=== PATIENT | female | born 1975 | race Caucasian/White ===

== ENCOUNTER 2023-12-11 20:06 | Emergency (ER) | payer BC ==
[~2023-12-11] VITALS: Ht 167.6 cm; Wt 91.3 kg
[2023-12-11 20:16] VITALS: TEMP 98.6
[2023-12-11] MEDS: TETanus/Pertussis (Acell)/Diphther VAC/PF (Tdap-Adult) 0.5ml syringe IMVAC ONE (22:00)
[2023-12-11] MEDS: LIDOcaine 1% W/epiNEPHrine 1:100,000 20ml vial SQ ONE (22:01)
[2023-12-11] MEDS ORDERED: AMOX-580 PO (22:46)
[2023-12-11] MEDS ORDERED: HYDR-3965 PO (23:07)
[2023-12-11 23:18] VITALS: BP 108/69; PULSE 65; RESP 18; O2SAT 98
== END 2023-12-11 23:15 | disposition home or self-care (01) ==
LOC: ER 20:10
DX: S61.214A Laceration without foreign body of right ring finger without damage to nail, initial encounter (principal); Z79.2 Long term (current) use of antibiotics; W54.0XXA Bitten by dog, initial encounter; Y93.89 Activity, other specified; Y92.89 Other specified places as the place of occurrence of the external cause; Y99.8 Other external cause status
CPT/HCPCS: 12002; 73130; 90471; 90715; 99283

== ENCOUNTER 2024-02-15 16:13 | Emergency (ER) | payer BC ==
[~2024-02-15] VITALS: Ht 166.4 cm; Wt 90.0 kg
[2024-02-15] MEDS: normal saline 1000ml 1,000 ML IV ONE (16:40)
[2024-02-15 16:50] LABS: BASOPHILS # (AUTO) 0.1 X10'3 (0-0.2); EOSINOPHILS # (AUTO) 0.2 X10'3 (0-0.9); EOSINOPHILS % (AUTO) 0.8 % (0-6)
[2024-02-15 16:52] LABS: BASOPHILS % (AUTO) 0.3 % (0-1); HEMATOCRIT 31.1 % (35.0-45.0); LYMPHOCYTES # (AUTO) 1.9 X10'3 (1.1-4.8); LYMPHOCYTES % (AUTO) 7.7 % (21-51); MEAN CORPUSCULAR HEMOGLOBIN 28.2 PG (27.0-31.0); MEAN CORPUSCULAR HGB CONC 32.2 g/dL (33.0-36.5); MEAN CORPUSCULAR VOLUME 87.4 FL (78-98); MEAN PLATELET VOLUME 6.5 FL (7.4-10.4); MONOCYTES # (AUTO) 2.1 X10'3 (0-0.9); MONOCYTES % (AUTO) 8.4 % (2-12); NEUTROPHILS # (AUTO) 20.9 X10'3 (1.8-7.7); NEUTROPHILS % (AUTO) 82.8 % (42-75); RED BLOOD COUNT 3.56 X10'6 (4.20-5.60); RED CELL DISTRIBUTION WIDTH 15.1 % (11.5-14.5)
[2024-02-15 17:02] LABS: ALANINE AMINOTRANSFERASE 65 U/L (12-78); ALBUMIN 2.1 G/DL (3.4-5.0); ALBUMIN/GLOBULIN RATIO 0.4 (1.1-1.5); ALKALINE PHOSPHATASE 362 IU/L (46-116); ANION GAP 14 (8-16); ASPARTATE AMINO TRANSFERASE 32 U/L (10-37); BLOOD UREA NITROGEN 12 MG/DL (7-18); BUN/CREATININE RATIO 17.1 (10.0-20.0); CALCIUM 8.8 MG/DL (8.5-10.1); CHLORIDE 93 MMOL/L (99-107); GLUCOSE 127 MG/DL (70-104); LIPASE 107 U/L (16-77); SODIUM 132 MMOL/L (135-145); TOTAL CARBON DIOXIDE 25.5 MMOL/L (24-32); TOTAL PROTEIN 7.5 G/DL (6.4-8.2); eCRCL 88 ML/MIN; eGFR 89 ML/MIN
[2024-02-15 17:03] LABS: PLATELET COUNT 1001 X10'3 (140-440); POTASSIUM 3.4 MMOL/L (3.5-5.1); WHITE BLOOD COUNT 25.2 X10'3 (4.5-11.0)
[2024-02-15 17:46] LABS: TOTAL CELLS COUNTED 100
[2024-02-15 17:48] LABS: LARGE PLATELETS FEW; PLATELET ESTIMATE INCREASED
[2024-02-15] MEDS ORDERED: iohexol 300mg/ml 100ml inj. ONE (17:53)
[2024-02-15] MEDS: HYDROmorphone inj. 0.5 MG/0.5 ML DISP.SYRIN IV ONE ×2 (18:16→22:16)
[2024-02-15] MEDS: IOHEXOL 12MG/ML oral solution 500 ML BOTTLE PO ONE (18:29)
[2024-02-15] MEDS: piperacillin/tazo 3.375gm/50ml 50 ML IV SCH (18:42)
[2024-02-15] MEDS ORDERED: ZOLPIDEM (19:25)
[2024-02-15] MEDS ORDERED: FLUT1BLS3 INH (19:25)
[2024-02-15] MEDS ORDERED: HYDR-3972 PO (19:25)
[2024-02-15] MEDS ORDERED: ondansetron/PF 4mg/2ml inj IV PRN (20:50)
[2024-02-15] MEDS ORDERED: mag hydrox/Alum hydrox/simeth 30ml oral suspension PO PRN (20:50)
[2024-02-15] MEDS ORDERED: magnesium sulf-water 2g/50mL 50 ML IV PRN (20:50)
[2024-02-15] MEDS ORDERED: potassium Cl 40MEQ/1/2NS 520ml 520 ML IV PRN (20:50)
[2024-02-15] MEDS ORDERED: potassium Cl 20 mEq SR tablet PO PRN ×2 (20:50)
[2024-02-15] MEDS ORDERED: magnesium sulf-water 4G/100mL 100 ML IV PRN (20:50)
[2024-02-15] MEDS ORDERED: magnesium hydroxide 30ml (MOM) UD suspension PO PRN (20:50)
[2024-02-15] MEDS ORDERED: HYDROcodone/acetaminophen 5mg/325mg tablet PO PRN (20:50)
[2024-02-15] MEDS ORDERED: acetaminophen 325mg tablet PO PRN (20:50)
[2024-02-15] MEDS ORDERED: morphine 2 MG/ML inj. syringe IV PRN (20:50)
[2024-02-15] MEDS ORDERED: magnesium Cl slow-release 64mg tablet PO PRN (20:50)
[2024-02-16] MEDS: piperacillin/tazo 4.5gm/100ml 100 ML IV SCH (00:12)
[2024-02-16 02:57] VITALS: BP 124/76; PULSE 112; RESP 22; TEMP 99.1; O2SAT 98
[2024-02-16] MEDS ORDERED: docusate sod 100mg capsule PO SCH (08:00)
[2024-02-16] MEDS ORDERED: K and/or MAG REPLACEMENT MC SCH (08:00)
== END 2024-02-16 03:00 | disposition short-term general hospital (02) ==
LOC: ER 16:14 → UNDOADMIN 20:51 → ED HOLD 20:51 → UNDODISIN 02-16 03:04
DX: K91.89 Other postprocedural complications and disorders of digestive system (principal); Z79.899 Other long term (current) drug therapy
CPT/HCPCS: 36415; 71250; 74176; 80053; 83605; 83690; 84145; 85007; 85025; 85651; 87040; 96361; 96365; 96366; 96375; 96376; 99285; J1171; J2543; J7030; G0378; Q9967

== ENCOUNTER 2024-03-06 14:03 | Outpatient (CLI) | payer BC ==
[~2024-03-06 14:03] MED LIST: FLUT1BLS3 INH; HYDR-3972 PO; ZOLPIDEM
[2024-03-06] MEDS ORDERED: iohexol 300mg/ml 100ml inj. ONE (14:13)
== END 2024-03-06 23:59 | disposition home or self-care (01) ==
LOC: RAD 14:03
PROVIDERS: ATTEND Surgery
DX: N28.1 Cyst of kidney, acquired (principal); A41.9 Sepsis, unspecified organism; K76.89 Other specified diseases of liver; J98.6 Disorders of diaphragm; R18.8 Other ascites
CPT/HCPCS: 74177; Q9967

== ENCOUNTER 2024-03-09 07:57 | Day surgery (SDC) | payer BC ==
[~2024-03-09] VITALS: Ht 167.6 cm; Wt 77.0 kg
[2024-03-09] VITALS (21 sets, daily range): BP systolic 112–132; BP diastolic 61–76; PULSE 70–88; RESP 14–18; TEMP 98.2; O2SAT 97–100
[2024-03-09] MEDS ORDERED: ZOLP-240 (08:37)
[2024-03-09] MEDS ORDERED: midazolam 1 mg/ML 2ml injection ONE (12:39)
[2024-03-09] MEDS ORDERED: fentaNYL/PF 50MCG/1 ML 2ML syringe ONE (12:39)
[2024-03-09] MEDS: acetaminophen 325mg tablet PO PRN (15:28)
== END 2024-03-09 15:50 | disposition home or self-care (01) ==
LOC: SSTAY O 07:57
PROVIDERS: ATTEND Surgery
DX: R18.8 Other ascites (principal)
CPT/HCPCS: 49406; 87070; J2250; J3010; J7030; A4314; A4421; A6258; A6449; C1729